=== PATIENT | female | born 1965 | race Two or more races ===

== ENCOUNTER 2017-12-20 23:20 | Emergency (ER) | payer MEDICAID ==
[~2017-12-20] VITALS: Ht 165.1 cm; Wt 86.2 kg
[2017-12-20 23:38] VITALS: BP 146/81
[2017-12-20] MEDS ORDERED: diphenhdrAMINE HCL 25 MG CAP PO ONE (23:45)
[2017-12-21] MEDS ORDERED: methylPREDNISolone SOD SUCC 125 MG/2 ML VL IM ONE (01:30)
== END 2017-12-21 03:30 | disposition home or self-care (01) ==
LOC: ER 23:20
DX: R20.0 Anesthesia of skin (principal); T50.995A Adverse effect of other drugs, medicaments and biological substances, initial encounter; Z91.013 Allergy to seafood; Y92.89 Other specified places as the place of occurrence of the external cause
CPT/HCPCS: 96372; 99283; J2930